=== PATIENT | female | born 1990 | race Caucasian/White ===

== ENCOUNTER 2016-12-19 20:16 | Emergency (ER) | payer MEDICAID ==
[~2016-12-19] VITALS: Ht 157.5 cm; Wt 62.5 kg
[2016-12-19 20:28] VITALS: BP 134/81; PULSE 90; RESP 18; TEMP 98.1; O2SAT 100
[2016-12-19] MEDS ORDERED: SODIUM CHLOR 0.9% 1000 ML INJ 1,000 ML IV ONE (20:59)
[2016-12-19] MEDS ORDERED: SODIUM CHLORIDE 0.9% FLUSH 10 ML FLUSH IVF PRN (21:00)
[2016-12-19] MEDS ORDERED: diphenhydrAMINE HCL 50 MG/ML VIAL IVP ONE (21:00)
[2016-12-19] MEDS ORDERED: METOCLOPRAMIDE HCL 10 MG/2 ML VIAL IVP ONE (21:00)
--- NOTE | 2016-12-19 21:18 | PD ---
HPI Chief Complaint: Headache Time Seen by Provider: 20:52 Travel History International Travel<30 days: No Contact w/Intl Traveler<30days: Yes (Cruise tour to [facility]) Traveled to known affect area: Yes (Cruise to the [facility]) History of Present Illness HPI 26-year-old female has left parietal occipital headache. It started yesterday while she was at work. She felt sudden onset of abdominal pain and then took a break. While she was resting she felt the left headache pain start. Since then it has been constant. It was sudden in onset. Tylenol has not been helpful. She notes + at home test. She's had no nausea or vomiting. She reports trace vaginal spotting yesterday. Last menstruation was just under 2 months prior. No follow-up with obstetrics. She also reports a few days of occasional cough and a sense of generalized malaise. Her daughter had similar symptoms. It started while they were on a trip in the [facility]/on a cruise. PFSH Past Medical History Anemia: Yes Diminished Hearing: No Gastrointestinal Disorders: No Headaches: Yes Immune Disorder: No Implanted Vascular Access Dvce: No Immunizations Current: No Migraines: Yes Tetanus Vaccination: Unknown Influenza Vaccination: No ?: LMP: LMP 10/22/16 : 2 Para: 1 Miscarriage: 0 : 0 Past Surgical History Section: Yes Other Surgery: No Social History Alcohol Use: No Tobacco Use: No Substance Use: No Allergies-Medications (Allergen,Severity, Reaction): Coded Allergies: Dilaudid (Verified Allergy, Severe, 12/19/16) Vancomycin (Verified Allergy, Severe, RASH, 12/19/16) Morphine (Verified Allergy, Mild, 12/19/16) PT SAID SHE FELT A HOT FLUSHED FEELING AFTER MORPHINE Reported Meds & Prescriptions Reported Meds & Active Scripts Active Plus Iron 29-1 mg ( Vit-Iron Carbonyl) 1 Tab Tab 1 Tab PO DAILY Review of Systems Except as stated in HPI: all other systems reviewed are Neg General / Constitutional: No: Fever HENT: Positive: Headaches, No: Congestion, Nosebleed, Neck Stiffness, Neck Pain, Masses Neurologic: Positive: Headache, No: Weakness, Dizziness, Change in Mentation, Slurred Speech Physical Exam Narrative GENERAL: 26 -year-old female well-nourished well-developed. SKIN: Focused skin assessment warm/dry. HEAD: Atraumatic. Normocephalic. EYES: Pupils equal and round. No scleral icterus. No injection or drainage. ENT: No nasal bleeding or discharge. Mucous membranes pink and moist. NECK: Trachea midline. No JVD. CARDIOVASCULAR: Regular rate and rhythm. No murmur appreciated. RESPIRATORY: No accessory muscle use. Clear to auscultation. Breath sounds equal bilaterally. GASTROINTESTINAL: Soft. No focus of tenderness. MUSCULOSKELETAL: No obvious deformities. No clubbing. No cyanosis. No edema. NEUROLOGICAL: Awake and alert. No obvious cranial nerve deficits. Motor grossly within normal limits. Normal speech. PSYCHIATRIC: Appropriate mood and affect; insight and judgment normal. Data Data Last Documented VS Vital Signs Date Time Temp Pulse Resp B/P Pulse Ox O2 Delivery O2 Flow Rate FiO2 12/19/16 22:35 81 16 109/61 100 Room Air 12/19/16 20:28 98.1 VS reviewed Orders Complete Blood Count With Diff (12/19/16 20:59) Basic Metabolic Panel (Bmp) (12/19/16 20:59) Ecg Monitoring (12/19/16 20:59) Iv Access Insert/Monitor (12/19/16 20:59) Oximetry (12/19/16 20:59) Sodium Chloride 0.9% Flush (Ns Flush) (12/19/16 21:00) Diphenhydramine Inj (Benadryl Inj) (12/19/16 21:00) Metoclopramide Inj (Reglan Inj) (12/19/16 21:00) Sodium Chlor 0.9% 1000 Ml Inj (Ns 1000 M (12/19/16 20:59) Beta Hcg (Quant/Titer) (12/19/16 20:59) Ed Poc Ultrasound (12/19/16 22:22) Labs Laboratory Tests Test 12/19/16 21:30 White Blood Count 8.9 TH/MM3 Red Blood Count 4.87 MIL/MM3 Hemoglobin 9.8 GM/DL Hematocrit 31.7 % Mean Corpuscular Volume 65.0 FL Mean Corpuscular Hemoglobin 20.2 PG Mean Corpuscular Hemoglobin 31.0 % Concent Red Cell Distribution Width 14.4 % Platelet Count 225 TH/MM3 Mean Platelet Volume 8.5 FL Neutrophils (%) (Auto) 61.7 % Lymphocytes (%) (Auto) 28.5 % Monocytes (%) (Auto) 7.5 % Eosinophils (%) (Auto) 1.8 % Basophils (%) (Auto) 0.5 % Neutrophils # (Auto) 5.5 TH/MM3 Lymphocytes # (Auto) 2.5 TH/MM3 Monocytes # (Auto) 0.7 TH/MM3 Eosinophils # (Auto) 0.2 TH/MM3 Basophils # (Auto) 0.0 TH/MM3 CBC Comment AUTO DIFF Differential Comment AUTO DIFF CONFIRMED Platelet Estimate NORMAL Platelet Morphology Comment NORMAL Ovalocytes 1+ Sodium Level 139 MEQ/L Potassium Level 3.7 MEQ/L Chloride Level 105 MEQ/L Carbon Dioxide Level 25.9 MEQ/L Anion Gap 8 MEQ/L Blood Urea Nitrogen 12 MG/DL Creatinine 0.65 MG/DL Estimat Glomerular Filtration 112 ML/MIN Rate Random Glucose 92 MG/DL Calcium Level 9.1 MG/DL Human Chorionic Gonadotropin, 744274 MIU/ML Quant MDM Medical Decision Making Medical Screen Exam Complete: Yes Emergency Medical Condition: Yes Medical Record Reviewed: Yes Differential Diagnosis Migraine, tension headache, cerebral sinus thrombosis, ICH, threatened , IUP, meningitis Narrative Course CBC & BMP Diagram 12/19/16 21:30 Beta 121,267 Blood type: B+ TA ultrasound reveals IUP with FHR approx 150 bpm. Pelvic precautions discussed. Follow up with environmental solutions engineer in 48 hours as pt complained of spotting yesterday. At 2240 pt reports total resolution of cephalgia, reports feeling much better and she appears much more comfortable and much less anxious. The patient is resting comfortably and feels better, is alert and in no distress. The patients results and examination findings were discussed. The repeat examination is unremarkable and benign. The history, exam, diagnostic testing, and current condition do not suggest any significant pathology to warrant further testing, continued ED treatment, admission, or surgical evaluation at this point. The vital signs have been stable. The patient does not have uncontrollable pain, intractable vomiting, or other significant symptoms. The patient's condition is stable and appropriate for discharge. The patient will pursue further outpatient evaluation with a primary care physician or other designated or consulting physician as indicated in the discharge instructions. The patient expressed understanding and was agreeable with this plan. Diagnosis Primary Impression: Headache Qualified Code: R51 - Nonintractable headache, unspecified chronicity pattern , unspecified headache type Additional Impression: Qualified Code: Z33.1 - , unspecified gestational age Referrals: Amparo Jimenez MD 2 days Departure Forms: Tests/Procedures, Work Release Special Instructions: ABSOLUTELY NO HEAVY LIFTING ALLOWED Additional Instructions: You have a choice when it comes to health care, and we are glad that you chose [facility]. Hopefully, we have met your expectations on today's visit. You are welcome to return to [facility] at any time, as we are committed to meeting the health care needs of our community. PLEASE START TAKING VITAMINS SHARDA. PLEASE CALL DR JIMENEZ'S OFFICE FOR 48 REPEAT BETA. Med/Other Pt SpecificInfo: Prescription(s) given Scripts Vit-Iron Carbonyl ( Plus Iron 29-1 mg)1 Tab Tab1 Tab PO DAILY #90 TAB Ref 3 Prov:Ousmane Flower MD 12/19/16 Disposition: 01 DISCHARGE HOME Condition: Stable Ousmane Flower MD December 19, 2016 21:18
[2016-12-19 21:40] VITALS: BP 117/69; PULSE 91; RESP 18; O2SAT 100
[2016-12-19] MEDS ORDERED: PREN29TA PO (21:43)
[2016-12-19 21:44] LABS: AUTOMATED NEUTROPHIL # 5.5 TH/MM3 (1.8-7.7); BASOPHIL % 0.5 % (0.0-2.0); EOSINOPHIL # 0.2 TH/MM3 (0-0.4); EOSINOPHIL % 1.8 % (0.0-4.0); HEMATOCRIT 31.7 % (35.0-46.0); LYMPH % 28.5 % (9.0-44.0); LYMPHOCYTE # 2.5 TH/MM3 (1.0-4.8); MEAN CORPUSCULAR HEMOGLOBIN 20.2 PG (27.0-34.0); MONO % 7.5 % (0.0-8.0); NEUT % 61.7 % (16.0-70.0); PLATELET COUNT 225 TH/MM3 (150-450); RED BLOOD COUNT 4.87 MIL/MM3 (4.00-5.30); RED CELL DISTRIBUTION WIDTH 14.4 % (11.6-17.2); WHITE BLOOD COUNT 8.9 TH/MM3 (4.0-11.0)
[2016-12-19 21:48] LABS: HEMO FLAGS AUTO DIFF
[2016-12-19 21:53] LABS: POTASSIUM 3.7 MEQ/L (3.5-5.1)
[2016-12-19 21:57] LABS: BICARBONATE 25.9 MEQ/L (21.0-32.0)
[2016-12-19 22:01] LABS: OVALOCYTES 1+ (NORMAL); PLATELET ESTIMATE SMEAR NORMAL (NORMAL); PLATELET MORPHOLOGY NORMAL (NORMAL); SCAN/DIFF AUTO DIFF CONFIRMED
[2016-12-19 22:35] VITALS: BP 109/61; PULSE 81; RESP 16; O2SAT 100
[2016-12-19 23:05] VITALS: BP 109/63; PULSE 87; RESP 16; O2SAT 100
[2017-02-01] MEDS ORDERED: PRENMIS9 PO (11:23)
== END 2016-12-19 23:20 | disposition home or self-care (01) ==
LOC: PHED 20:16
DX: R51 Headache (principal); R10.9 Unspecified abdominal pain; Z33.1 Pregnant state, incidental
CPT/HCPCS: 80048; 84702; 85025; 96361; 96374; 96375; 99284; J1200; J2765; J7030

== ENCOUNTER 2017-05-27 15:24 | Emergency (ER) | payer MEDICAID ==
[~2017-05-27] VITALS: Ht 157.5 cm; Wt 68.9 kg
[~2017-05-27 15:24] MED LIST: FERRTAB2 PO; PREN29TA PO; PRENMIS9 PO
--- NOTE | 2017-05-27 16:08 | PD ---
HPI Chief Complaint Lower abdominal pain Date Seen: May 27, 2017 Time Seen: 16:01 Travel History International Travel<30 Days: No Contact w/Intl Traveler<30Days: No Known Affected Area: No History of Present Illness HPI 27-year-old who is at 30 weeks gestation complains of lower abdominal pain which is constant since last night at 8 PM. It is worse when she stands up and worse when she is on her feet vernix long periods time. Patient denies contractions or vaginal bleeding. She has normal movement so far and no rupture membranes or vaginal discharge. Patient denies dysuria or frequency. Weeks Gestation: 30 Para: 1 : 2 History Past Medical History Medical History: Denies Significant Hx Obstetric History Obstetric History section for nonreassuring heart rate tracing patient plans to this Past Surgical History Narrative Surgical section Family History Family History: Negative Social History Alcohol Use: No Tobacco Use: No Substance Abuse: No Allergies-Medications (Allergen,Severity, Reaction): Coded Allergies: hydromorphone (Unverified Allergy, Severe, 05/16/17) vancomycin (Unverified Allergy, Severe, RASH, 05/16/17) morphine (Unverified Allergy, Mild, 05/16/17) PT SAID SHE FELT A HOT FLUSHED FEELING AFTER MORPHINE Review of Systems Except as stated in HPI: all other systems reviewed are Neg Physical Exam Narrative GENERAL: Well-nourished, well-developed patient. SKIN: Warm and dry. HEAD: Normocephalic and atraumatic. EYES: No scleral icterus. No injection or drainage. ENT: No nasal drainage noted. Mucous membranes pink. Airway patent. NECK: Supple, trachea midline. No JVD. CARDIOVASCULAR: Regular rate and rhythm without murmurs, gallops, or rubs. RESPIRATORY: Breath sounds equal bilaterally. No accessory muscle use. BREASTS: Bilateral exam showed no masses , no retractions, no nipple discharge. ABDOMEN/GI: Abdomen soft, non-tender, bowel sounds present, no rebound, no guarding Gravid to [30-] weeks size Fundal Height: [-] GENITOURINARY: External Genitalia: intact and normal in appearance BUS glands: [Normal-] Cervix: [-Posterior] Dilatation: [-Closed] Effacement: [Long-] Station: [High-] Presentation: [-Vertex] Membranes: [intact ] Uterine Contractions: [-Absent] FHT's: Category: [1-] Baseline: [-140] Reactive: [-Moderate] Variability: [Moderate-] Decels: [Absent-] EXTREMITIES: No cyanosis or edema. BACK: Nontender without obvious deformity. No CVA tenderness. NEUROLOGICAL: Awake and alert. Motor and sensory grossly within normal limits. Five out of 5 muscle strength in all muscle groups. Normal speech. Data Data Vital Signs Reviewed: Yes Orders Orders Urinalysis - C+S If Indicated (05/27/17 15:58) [facility] Medical Record Reviewed: Yes Plan 27-year-old at 30 weeks gestation, no signs of labor, no contractions, urine dip is normal Suspect discomforts of and perhaps round ligament pain Recommend decrease workload and decreased activity for the next 24-48 hours Diagnosis Diagnosis: Primary Impression: 30 weeks gestation of Additional Impression: related bilateral lower abdominal pain, antepartum Disposition: 01 DISCHARGE HOME Pamela Rivers MD May 27, 2017 16:08
[2017-05-27 16:22] LABS: AMORPHOUS SEDIMENT, URINE RARE; BACTERIA, URINE RARE /hpf; BILIRUBIN, URINE NEG (NEG); BLOOD, URINE NEG (NEG); GLUCOSE,URINE NEG (NEG); KETONE, URINE NEG (NEG); MUCUS URINE FEW /lpf (OCC); NITRITE,URINE NEG (NEG); PH, URINE 6.5 (5.0-8.5); SQUAMOUS EPITHELIAL CELL URINE 4 /hpf (0-5); URINE COLOR YELLOW (YELLW/STRAW); URINE LEUKOCYTE ESTERASE SMALL (NEG); WHITE BLOOD CELL CLUMPS MOD
[2017-05-30] MEDS ORDERED: PREN1CAP20 PO (09:31)
== END 2017-05-27 16:28 | disposition home or self-care (01) ==
LOC: HOBED 15:24
DX: O26.893 Other specified pregnancy related conditions, third trimester (principal); R10.31 Right lower quadrant pain; R10.32 Left lower quadrant pain; Z3A.30 30 weeks gestation of pregnancy
CPT/HCPCS: 81001; 87086; 99283

== ENCOUNTER 2017-07-23 09:47 | Emergency (ER) | payer MEDICAID ==
[~2017-07-23 09:47] MED LIST changes: -FERRTAB2 PO; +PREN1CAP20 PO; -PREN29TA PO; -PRENMIS9 PO
[2017-07-23] MEDS ORDERED: SODIUM CHLORIDE 0.9% FLUSH 10 ML FLUSH IV FLUSH PRN (10:30)
[2017-07-23] MEDS ORDERED: DEXTROSE 5%-LACTATED RING INJ 1,000 ML IV SCH (10:30)
[2017-07-23 10:38] VITALS: BP 127/74; PULSE 101
--- NOTE | 2017-07-23 10:38 | PD ---
HPI Chief Complaint dizziness, headaches, blurry vision Date Seen: Jul 23, 2017 Time Seen: 10:28 Travel History International Travel<30 Days: No Contact w/Intl Traveler<30Days: No History of Present Illness HPI Patient is a 27 year old at 38 weeks gestation, EDC 08/05/2017. Scheduled CS scheduled for 07/30/2017. She presents to the OB ED with dizziness, blurry vision, headache, "not self." She has history of migraine and anemia, took 325mg Tylenol this morning with no improvement of her symptoms. OB care with Jade [facility]. She denies leakage of fluid, vaginal bleeding, and contractions. She feels baby moving regularly. She denies fever/sick contacts/SOB/calf pain/ seeing spots. PMH: none reported PSH: none reported Allergies: morphine, dilaudid, vancomycin (breathing issues, swelling) Social: denies tobacco, alcohol, illicit drug use OBHx: , CS 3.5 yrs ago for distress, first baby 6lb. Scheduled for repeat CS 07/30/2017. No complications this reported. History Social History Alcohol Use: No Tobacco Use: No Substance Abuse: No Allergies-Medications (Allergen,Severity, Reaction): Coded Allergies: hydromorphone (Unverified Allergy, Severe, 07/22/17) vancomycin (Unverified Allergy, Severe, RASH, 07/22/17) morphine (Unverified Allergy, Mild, 07/22/17) PT SAID SHE FELT A HOT FLUSHED FEELING AFTER MORPHINE Home Meds Active Scripts W/O Vit A W/ Fe Carbo (Prenate Mini 18-0.6-0.4-350 mg) 18 Mg Iron-1 Mg- 350 Mg Cap, 1 TAB PO DAILY, #30 BOTTLE 11 Refills Prov:Rachael Gallegos 05/30/17 Review of Systems Except as stated in HPI: all other systems reviewed are Neg Physical Exam Narrative GENERAL: Well-nourished, well-developed patient. SKIN: Warm and dry. HEAD: Normocephalic and atraumatic. EYES: No scleral icterus. No injection or drainage. ENT: No nasal drainage noted. Mucous membranes pink. Airway patent. NECK: Supple, trachea midline. No JVD. CARDIOVASCULAR: Regular rate and rhythm without murmurs, gallops, or rubs. RESPIRATORY: Breath sounds equal bilaterally. No accessory muscle use. ABDOMEN/GI: Abdomen soft, non-tender, bowel sounds present, no rebound, no guarding. Gravid to full term size GENITOURINARY: External Genitalia: deferred Uterine Contractions: absent on toco FHT's: Category: 1 Baseline: 140s Reactive: y Variability: mod Decels: absent EXTREMITIES: No cyanosis or edema. BACK: Nontender without obvious deformity. No CVA tenderness. NEUROLOGICAL: Awake and alert. Motor and sensory grossly within normal limits. Five out of 5 muscle strength in all muscle groups. Normal speech. Data Data Vital Signs Reviewed: Yes (wnl) Orders Orders Vital Signs (Adult) .ON ADMISSION (07/23/17 10:25) ^ Labor Status (07/23/17 10:25) ^ Non Stress Test (07/23/17 10:25) Sodium Chloride 0.9% Flush (Ns Flush) (07/23/17 10:30) Dextrose 5%-Lactated Ring Inj (D5-Lr Inj (07/23/17 10:30) Cbc No Diff, Includes Plts (07/23/17 10:25) Comprehensive Metabolic Panel (07/23/17 10:25) Urinalysis - C+S If Indicated (07/23/17 10:25) MDM Medical Record Reviewed: Yes Plan 27 year old at 38 weeks gestation, EDC 08/05/2017. Scheduled CS scheduled for 07/30/2017. She presents to the OB ED with dizziness, blurry vision, headache, "not self." She has history of migraine and anemia, on iron. Intrauterine : Category 1 tracing CS scheduled for 07/30/2017 Monitor heart tones Routine care GBS negative Headache, Blurry Vision BPs within normal limits Likely related to dehydration but does have hx migraiens Will get CBC, CMP, UA Hydration with 1L d5NS Tylenol 650mg x 1 If symptoms improve and labs wnl, will discharge home with labor and PreE precautions, recommendations for acetaminophen PRN, routine followup DW Dr. Jade Harris Diagnosis Diagnosis: Primary Impression: Headache Additional Impressions: with 38 completed weeks gestation Dehydration Disposition: 01 DISCHARGE HOME Condition: Stable Patient Instructions: Early Labor Signs (ED), Having Your Baby: The Labor Process (GEN) Gisela Hammer MD R2 Jul 23, 2017 10:38
[2017-07-23 10:45] VITALS: BP 122/71; PULSE 102
[2017-07-23 11:19] LABS: BACTERIA, URINE RARE /hpf; BILIRUBIN, URINE NEG (NEG); BLOOD, URINE NEG (NEG); GLUCOSE,URINE NEG (NEG); KETONE, URINE NEG (NEG); MUCUS URINE FEW /lpf (OCC); NITRITE,URINE NEG (NEG); SQUAMOUS EPITHELIAL CELL URINE 3 /hpf (0-5); URINE COLOR YELLOW (YELLW/STRAW); URINE LEUKOCYTE ESTERASE TRACE (NEG)
[2017-07-23 11:37] LABS: HEMATOCRIT 29.1 % (35.0-46.0); HEMOGLOBIN 9.2 GM/DL (11.6-15.3); MEAN CORPUSCULAR HEMOGLOBIN 21.2 PG (27.0-34.0); MEAN CORPUSCULAR HGB CONC 31.6 % (32.0-36.0); MEAN PLATELET VOLUME 9.8 FL (7.0-11.0); PLATELET COUNT 184 TH/MM3 (150-450); RED BLOOD COUNT 4.34 MIL/MM3 (4.00-5.30); RED CELL DISTRIBUTION WIDTH 15.5 % (11.6-17.2); WHITE BLOOD COUNT 11.4 TH/MM3 (4.0-11.0)
[2017-07-23] MEDS ORDERED: ACETAMINOPHEN 325 MG TAB PO ONE (11:45)
[2017-07-23 12:01] LABS: ALBUMIN 2.8 GM/DL (3.4-5.0); ALT (GPT) 17 U/L (10-53); AST (GOT) 23 U/L (15-37); BLOOD UREA NITROGEN 6 MG/DL (7-18); CALCIUM 8.6 MG/DL (8.5-10.1); CHLORIDE 106 MEQ/L (98-107); CREATININE 0.43 MG/DL (0.50-1.00); GLOMERULAR FILTRATION RATE 179 ML/MIN (>89); GLUCOSE,RANDOM 66 MG/DL (74-106); SODIUM (NA) 137 MEQ/L (136-145)
[2017-07-23 12:02] LABS: ALKALINE PHOSPHATASE 112 U/L (45-117); TOTAL BILIRUBIN ADULT 0.4 MG/DL (0.2-1.0); TOTAL PROTEIN 6.5 GM/DL (6.4-8.2)
--- NOTE | 2017-07-23 13:28 | PD ---
History of Present Illness History of Present Illness NST report Indications: IUP at 38 weeks, dizziness and weakness, visual changes and headache, and dehydration heart tone baselines in the 140s with moderate long-term variability, good accelerations, no decelerations are noted. This is a reassuring category 1 heart rate tracing and reactive NST. Final diagnosis:IUP at 38 weeks, dizziness and weakness, visual changes and headache, and dehydration. Reassuring testing with reactive NST. Follow-up: Follow-up as clinically indicated Rachael Harris MD Jul 23, 2017 13:28
== END 2017-07-23 12:26 | disposition home or self-care (01) ==
LOC: HOBED 09:47
DX: O99.283 Endocrine, nutritional and metabolic diseases complicating pregnancy, third trimester (principal); E86.0 Dehydration; Z3A.38 38 weeks gestation of pregnancy
CPT/HCPCS: 80053; 81001; 85027; 99284; J7121

== ENCOUNTER 2017-07-30 09:43 | Inpatient (IN) | payer MEDICAID ==
[2017-07-30] VITALS (14 sets, daily range): BP systolic 111–139; BP diastolic 53–85; PULSE 81–113; RESP 15–20; TEMP 97.6–98; O2SAT 99–100
--- NOTE | 2017-07-30 10:22 | HHI.HP ---
History & Physical H&P [employer] WORKER Consult (Detail) Patient Name: Jordy Rolle Unit Number: [id number] Date of : 1990 Patient Status: Registered Clinic Attending Doctor: Mike Felipe MD HPI HPI Chief Complaint for Date Seen: Jul 30, 2017 Time Seen: 1000 Travel History International Travel<30 Days: No Contact w/Intl Traveler<30Days: No Known Affected Area: No History of Present Illness HPI 27-year-old 2 para 1 at 3 9 weeks gestation with an EDC of August 05. She had a prior after failing to progress at 9 cm with a 6 pound infant. We reviewed today the possibility of trial of labor versus elective repeat and she is confident that she wants to proceed with repeat C- section after reviewing the benefits and risks. She will be 39 weeks on 28 July patent wishes to schedule her surgery on the . History (Limited) History Past Medical History Medical History: Denies Significant Hx Obstetric History Obstetric History Prior for failure to progress at 9 cm [facility] complicated by anemia for which she is taking iron. Her last hematocrit was 29%. Past Surgical History Narrative Surgical Family History Family History: Negative Social History Alcohol Use: No Tobacco Use: No Substance Abuse: No Allergies-Medications Allergies-Medications (Allergen,Severity, Reaction): Coded Allergies: hydromorphone (Unverified Allergy, Severe, 07/10/17) vancomycin (Unverified Allergy, Severe, RASH, 07/10/17) morphine (Unverified Allergy, Mild, 07/10/17) PT SAID SHE FELT A HOT FLUSHED FEELING AFTER MORPHINE Home Meds Active Scripts W/O Vit A W/ Fe Carbo (Prenate Mini 18-0.6-0.4-350 mg) 18 Mg Iron-1 Mg- 350 Mg Cap, 1 TAB PO DAILY, #30 BOTTLE 11 Refills Prov:Rachael Gallegos 05/30/17 ROS Review of Systems Except as stated in HPI: all other systems reviewed are Neg Physical Exam Physical Exam Narrative GENERAL: Well-nourished, well-developed patient. SKIN: Warm and dry. HEAD: Normocephalic and atraumatic. EYES: No scleral icterus. No injection or drainage. ENT: No nasal drainage noted. Mucous membranes pink. Airway patent. NECK: Supple, trachea midline. No JVD. CARDIOVASCULAR: Regular rate and rhythm without murmurs, gallops, or rubs. RESPIRATORY: Breath sounds equal bilaterally. No accessory muscle use. BREASTS: Bilateral exam showed no masses , no retractions, no nipple discharge. ABDOMEN/GI: Abdomen soft, non-tender, bowel sounds present, no rebound, no guarding Gravid to [-] weeks size Fundal Height: [-] GENITOURINARY: External Genitalia: intact and normal in appearance BUS glands: [-] Cervix: [post-] Dilatation: [0-] Effacement: [0-] Station: [-3] Presentation: [-vtx] Membranes: [intact ] Uterine Contractions: [-none] FHT's: Category: [-1] Baseline: [133-] Reactive: [yes-] Variability: [mod-] Decels: [none-] EXTREMITIES: No cyanosis or edema. BACK: Nontender without obvious deformity. No CVA tenderness. NEUROLOGICAL: Awake and alert. Motor and sensory grossly within normal limits. Five out of 5 muscle strength in all muscle groups. Normal speech. Data Data Data Labs B+, AST negative, hemoglobin 9.6, rubella immune, VDRL negative, hepatitis B negative, HIV negative, GC and Chlamydia negative, parasellar immune, 1 hour G gtt. 130, HIV negative and hepatitis B negative at 32 weeks MDM MDM Medical Record Reviewed: Yes Narrative Course / MDM Assessment: 39 week intrauterine with prior desiring elective repeat Plan: Repeat at noon on July 30. The patient was encouraged to increase her iron to twice daily. Disposition: ADMIT for C/S Condition: Good Mike Felipe MD Jul 30, 2017 1000 Mike Felipe II, MD Jul 30, 2017 10:22
[2017-07-30] MEDS ORDERED: LACTATED RINGER'S 1000 ML INJ 1,000 ML IV ONE (10:30)
[2017-07-30 10:35] LABS: AUTOMATED NEUTROPHIL # 6.5 TH/MM3 (1.8-7.7); BASOPHIL # 0.1 TH/MM3 (0-0.2); BASOPHIL % 0.6 % (0.0-2.0); EOSINOPHIL # 0.2 TH/MM3 (0-0.4); EOSINOPHIL % 2.3 % (0.0-4.0); HEMATOCRIT 30.6 % (35.0-46.0); HEMOGLOBIN 9.8 GM/DL (11.6-15.3); LYMPH % 19.3 % (9.0-44.0); LYMPHOCYTE # 1.8 TH/MM3 (1.0-4.8); MEAN CELL VOLUME 67.7 FL (80.0-100.0); MEAN CORPUSCULAR HEMOGLOBIN 21.7 PG (27.0-34.0); MEAN CORPUSCULAR HGB CONC 32.1 % (32.0-36.0); MEAN PLATELET VOLUME 10.1 FL (7.0-11.0); MONO % 8.8 % (0.0-8.0); MONOCYTE # 0.8 TH/MM3 (0-0.9); PLATELET COUNT 197 TH/MM3 (150-450); RED BLOOD COUNT 4.52 MIL/MM3 (4.00-5.30); WHITE BLOOD COUNT 9.4 TH/MM3 (4.0-11.0)
[2017-07-30 10:42] LABS: BACTERIA, URINE RARE /hpf; BILIRUBIN, URINE NEG (NEG); BLOOD, URINE NEG (NEG); GLUCOSE,URINE NEG (NEG); KETONE, URINE NEG (NEG); MUCUS URINE FEW /lpf (OCC); NITRITE,URINE NEG (NEG); SQUAMOUS EPITHELIAL CELL URINE 6 /hpf (0-5); URINE COLOR YELLOW (YELLW/STRAW); URINE LEUKOCYTE ESTERASE TRACE (NEG)
[2017-07-30] MEDS ORDERED: LACTATED RINGER'S 1000 ML INJ 1,000 ML IV SCH (11:00)
[2017-07-30] MEDS ORDERED: ceFAZolin 2 GM PREMIX 50 ML IV SCH (11:30)
[2017-07-30] MEDS ORDERED: MIDAZOLAM HCL 2 MG/2 ML VIAL ONE (11:54)
[2017-07-30] MEDS ORDERED: CITRIC ACID-SODIUM CITRATE LIQ 30 ML UDC PO SCH (12:00)
[2017-07-30] MEDS ORDERED: KETOROLAC TROMETHAMINE 60 MG/2 ML (IM) VIAL IM PRN ×2 (13:30)
[2017-07-30] MEDS ORDERED: ACETAMINOPHEN 325 MG TAB PO PRN (13:30)
[2017-07-30] MEDS ORDERED: IBUPROFEN 600 MG TAB PO PRN (13:30)
[2017-07-30] MEDS ORDERED: SIMETHICONE 80 MG CHEWABLE TAB PO PRN (13:30)
[2017-07-30] MEDS ORDERED: OXYTOCIN 30 UNITS-500ML PREMIX 500 ML IV ONE (13:30)
[2017-07-30] MEDS ORDERED: ZOLPIDEM TARTRATE 5 MG TAB PO PRN (13:30)
[2017-07-30] MEDS ORDERED: SODIUM CHLORIDE 0.9% FLUSH 10 ML FLUSH IV FLUSH PRN (13:30)
[2017-07-30] MEDS ORDERED: ONDANSETRON HCL 4 MG/2 ML VIAL IV PUSH PRN (13:30)
[2017-07-30] MEDS ORDERED: KETOROLAC TROMETHAMINE 60 MG/2 ML (IM) VIAL IM ONE (13:58)
[2017-07-30] MEDS ORDERED: OXYTOCIN 30 UNITS-500ML PREMIX 500 ML ONE (13:58)
[2017-07-30] MEDS ORDERED: EPIDURAL-DO NOT ADMINISTER ANTICOAGULANTS PRN (14:45)
[2017-07-30] MEDS ORDERED: EPIDURAL-DIPHENHYDRAMINE HCL 50 MG/ML VIAL IV PUSH PRN (14:45)
[2017-07-30] MEDS ORDERED: EPIDURAL-NO SYSTEMIC NARCOTICS PRN (14:45)
[2017-07-30] MEDS ORDERED: EPIDURAL-NALOXONE HCL 0.4 MG/ML AMP IV PUSH PRN (14:45)
[2017-07-30] MEDS ORDERED: EPIDURAL-DIPHENHYDRAMINE HCL 50 MG CAP PO PRN (14:45)
[2017-07-30] MEDS: ACETAMINOPHEN 1000 MG/100 ML 100 ML IV SCH ×2 (16:59→21:33)
--- NOTE | 2017-07-30 17:01 | MP ---
cc: ELIZABETH HARTMAN MD DATE OF SURGERY 07/30/2017 PREOPERATIVE DIAGNOSES Previous . At term for repeat . POSTOPERATIVE DIAGNOSES Previous . At term for repeat . 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 PROCEDURE PERFORMED Repeat low transverse section and drainage of mucinous cystadenoma the left fallopian tube. SURGEON MD Matteo MICA MINER BLASTING [facility] ANESTHESIA Spinal. PREOPERATIVE NOTE The patient is a 27-year-old white female, , previous who elects to have a repeat at 39 weeks. She was admitted for same. PROCEDURE The patient was taken to the operating room and placed supine on the operating table. Adequate spinal anesthesia was administered and she was prepped and draped for abdominal surgery. The previous Pfannenstiel incision was excised out and cast off. The incision was carried to the fascia and the fascia incised laterally and off the rectus muscle. The rectus was split in the midline and the peritoneal cavity entered sharply. The incision was extended superiorly and inferiorly. The incision was stretched open and the bladder blade placed in the lower end of the incision. The visceral peritoneum was reflected off the lower uterine segment and a transverse hysterotomy was made, extended bilaterally and a female infant was delivered at 12:29 p.m., weight 2770 grams, Apgars 9 and 9 and there was no complications to that delivery. Cord blood obtained. Delayed cord clamping noted and the baby handed to the awaiting nursery staff. There was a loose nuchal cord x2 which was reduced, a very small cord. The placenta was manually extracted and cast off. The uterus was exteriorized, hysterotomy closed in running layer of 0 chromic followed by imbricating suture of the same. Hemostasis was achieved with a couple of stick ties. The uterus was elevated and blood suctioned from cul-de-sacs and gutters. At that time we examining the adnexa. The right adnexa had normal tube and ovary. The left adnexa showed a 4 to 5 cm cystic structure at the end of the fallopian tube. This seemed to be coming from the mesosalpinx and fallopian tube, not the ovary itself. It was smooth and fluid-filled. A Bovie was used to cauterize into the cystic structure and a brownish mucin was expressed out of this cyst and was completely evacuated out. There was no hair or sign of a dermoid; it seemed more of a mucinous cystadenoma. This was all that was done to that side; however, we did not try to remove that cystic structure because I felt it would compromise the tube greatly to try and remove that cystic structure so it was left in situ. The uterus was replaced in the peritoneal cavity. The parietal peritoneum was closed in a running layer of 2-0 Vicryl and the muscle reapproximated with stick ties of chromic. The fascia was closed in running layer of 0 Vicryl. The subcutaneous tissues was reapproximated with a running layer of 2-0 plain suture and then the skin closed with subcuticular 3-0 Monocryl stitch. Pressure dressing was applied. The estimated blood loss was 500 cc. There were no complications. Sponge and needle count correct x2 and the patient went to Recovery in stable condition. MD SANGEETHA Messina/ALISON /1:55 PM /4:36 PM
[2017-07-30] MEDS ORDERED: oxyCODONE/ACETAMINOPHEN 5 MG/325 MG TAB PO PRN (18:00)
[2017-07-30] MEDS: oxyCODONE/ACETAMINOPHEN 5 MG/325 MG TAB PO PRN (20:04)
[2017-07-30] MEDS: LACTATED RINGER'S 1000 ML INJ 1,000 ML IV SCH (20:17)
[2017-07-30] MEDS: SODIUM CHLORIDE 0.9% FLUSH 10 ML FLUSH IV FLUSH SCH (20:17)
[2017-07-30] MEDS ORDERED: OXYTOCIN 30 UNITS-500ML PREMIX 500 ML IV PRN (23:30)
[2017-07-31] VITALS: BP 113/72; PULSE 97; RESP 18; TEMP 97.5; O2SAT 100
[2017-07-31] MEDS: IBUPROFEN 800 MG TAB PO PRN ×3 (00:07→18:06)
[2017-07-31] MEDS: oxyCODONE/ACETAMINOPHEN 5 MG/325 MG TAB PO PRN ×5 (00:07→18:06)
[2017-07-31 04:00] VITALS: BP 106/78; PULSE 91; RESP 18; TEMP 98; O2SAT 97
[2017-07-31] MEDS: ACETAMINOPHEN 1000 MG/100 ML 100 ML IV SCH (04:00)
[2017-07-31] MEDS: DOCUSATE SODIUM 50 MG/SENNA 8.6 MG TAB PO PRN (04:06)
[2017-07-31] MEDS: LACTATED RINGER'S 1000 ML INJ 1,000 ML IV SCH (04:21)
[2017-07-31 05:55] LABS: AUTOMATED NEUTROPHIL # 7.1 TH/MM3 (1.8-7.7); BASOPHIL # 0.1 TH/MM3 (0-0.2); BASOPHIL % 0.5 % (0.0-2.0); EOSINOPHIL # 0.2 TH/MM3 (0-0.4); EOSINOPHIL % 2.6 % (0.0-4.0); HEMATOCRIT 27.2 % (35.0-46.0); HEMOGLOBIN 8.9 GM/DL (11.6-15.3); LYMPH % 12.2 % (9.0-44.0); LYMPHOCYTE # 1.2 TH/MM3 (1.0-4.8); MEAN CORPUSCULAR HEMOGLOBIN 22.1 PG (27.0-34.0); MEAN CORPUSCULAR HGB CONC 32.5 % (32.0-36.0); MEAN PLATELET VOLUME 9.9 FL (7.0-11.0); MONO % 10.3 % (0.0-8.0); NEUT % 74.4 % (16.0-70.0); PLATELET COUNT 162 TH/MM3 (150-450); RED CELL DISTRIBUTION WIDTH 15.8 % (11.6-17.2); WHITE BLOOD COUNT 9.5 TH/MM3 (4.0-11.0)
--- NOTE | 2017-07-31 07:11 | HHI.OB ---
Subjective Remarks POD #1 s/p repeat . No acute issues overnight. Vitals are stable, patient remains afebrile. Her pain is currently a 7/10 and she does not feel that her current pain medications are strong enough. She has been up walking around and going to the bathroom without difficulty. 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 Her incision is draining a small amount of blood. She is bonding well with . Objective Vitals/I&O Vital Signs Date Time Temp Pulse Resp B/P (MAP) Pulse Ox O2 Delivery O2 Flow Rate FiO2 07/31/17 04:00 98.0 91 18 106/78 (87) 97 07/31/17 00:00 97.5 97 18 113/72 (86) 100 07/30/17 20:00 97.9 91 20 116/69 (85) 99 07/30/17 17:16 17 07/30/17 17:00 17 07/30/17 15:10 18 07/30/17 14:52 97.9 91 16 125/68 (87) 07/30/17 14:14 18 100 07/30/17 14:14 97.9 07/30/17 14:14 81 118/58 (78) 07/30/17 14:10 16 07/30/17 14:08 100 07/30/17 14:08 85 116/53 (74) 07/30/17 13:45 85 15 124/55 (78) 100 07/30/17 13:35 92 20 116/61 (79) 100 07/30/17 13:25 97.6 07/30/17 13:25 89 15 100 07/30/17 13:25 111/61 (78) 07/30/17 11:28 18 07/30/17 10:21 98.0 07/30/17 09:56 113 139/85 (103) Result Diagram: 07/31/17 0512 Objective Remarks GENERAL: Well-nourished, well-developed patient. CARDIOVASCULAR: Regular rate and rhythm without murmurs, gallops, or rubs. RESPIRATORY: Breath sounds equal bilaterally. No accessory muscle use. ABDOMEN/GI: Abdomen soft, non-tender, bowel sounds present. Incision: Clean, dry and intact. Fundus: Firm, non-tender at umbilicus. GENITOURINARY: Light to moderate bleeding. EXTREMITIES: No cyanosis or edema, non-tender, without signs of DVT. Medications and IVs Current Medications Medications (Trade) Dose Ordered Sig/Maria Dolores Route Start Time Stop Time Status Last Admin Lactated Ringer's 1,000 ml @ 100 mls/hr Q10H IV 07/30/17 18:21 07/31/17 14:20 07/30/17 20:17 Oxytocin 500 ml @ 100 mls/hr UNSCH X1 PRN IV 07/30/17 23:30 07/31/17 23:29 (NS Flush) 2 ml BID IV FLUSH 07/30/17 21:00 (NS Flush) 2 ml UNSCH PRN IV FLUSH 07/30/17 13:30 (Mylicon Chew) 80 mg QID PRN PO 07/30/17 13:30 (Tylenol) 650 mg Q6H PRN PO 07/30/17 13:30 (Toradol Inj) 60 mg UNSCH X1 PRN IM 07/30/17 13:30 07/31/17 13:29 07/30/17 14:02 (Toradol Inj) 30 mg Q6H PRN IM 07/30/17 13:30 07/31/17 13:29 (Toma-Colace) 2 tab Q12H PRN PO 07/30/17 13:30 07/31/17 04:06 (Ambien) 5 mg HS PRN PO 07/30/17 13:30 (M-M-R Ii Inj) 0.5 ml ONCE ONCE SQ 07/31/17 16:00 07/31/17 16:01 (Boostrix Inj) 0.5 ml ONCE ONCE IM 07/31/17 16:00 07/31/17 16:01 (Zofran Inj) 4 mg Q6H PRN IV PUSH 07/30/17 13:30 Miscellaneous Information NO SYSTEMIC NARCOTICS TO BE GIVEN FO... UNSCH PRN .XX 07/30/17 14:45 07/31/17 14:44 (Narcan Inj) 0.4 mg UNSCH PRN IV PUSH 07/30/17 14:45 07/31/17 14:44 (Benadryl Inj) 25 mg Q6H PRN IV PUSH 07/30/17 14:45 07/31/17 14:44 (Benadryl) 50 mg Q6H PRN PO 07/30/17 14:45 07/31/17 14:44 Miscellaneous Information ALL NURSING DEPARTMENTS UNSCH PRN .XX 07/30/17 14:45 07/31/17 14:44 Acetaminophen 100 ml @ 400 mls/hr Q6H IV 07/30/17 16:00 07/30/17 16:59 (Percocet 5-325 Mg) 1 tab Q4H PRN PO 07/30/17 18:00 (Percocet 5-325 Mg) 2 tab Q4H PRN PO 07/30/17 18:00 07/31/17 04:06 (Motrin) 800 mg QID PRN PO 07/30/17 23:45 07/31/17 00:07 Assessment/Plan Problem List: (1) delivery delivered ICD Codes: O82 - Encounter for delivery without indication Status: Acute Assessment and Plan 27 y/o female who is POD # 1 s/p . -Continue routine care. -Hgb stable at 8.9, down from 9.8 -Percocet and Motrin PRN pain. -Encouraged OOB. Advised pelvic rest for 6 wks. Will need a f/u appt. in 1 wk for incision check. -Re: ctrl, she would like to consider her options - Discharge home in 1-2 days. annika Scruggs,Maureen Herr MD, R3 Jul 31, 2017 07:11
[2017-07-31 08:11] VITALS: BP 107/69; PULSE 86; RESP 18; TEMP 97.9
[2017-07-31] MEDS ORDERED: ACETAMINOPHEN 1000 MG/100 ML 100 ML IV PRN (16:00)
[2017-07-31] MEDS ORDERED: MEASLES, MUMPS, RUBELLA VACCINE 0.5 ML VIAL SQ ONE (16:00)
[2017-07-31] MEDS ORDERED: DIPHTH/TETANUS/ACEL PERTUSSIS (BOOSTER) 0.5 ML VIAL/PFS IM ONE (16:00)
[2017-07-31] MEDS: SODIUM CHLORIDE 0.9% FLUSH 10 ML FLUSH IV FLUSH SCH (21:00)
[2017-08-01] MEDS: IBUPROFEN 800 MG TAB PO PRN ×2 (00:03→06:17)
[2017-08-01] MEDS: oxyCODONE/ACETAMINOPHEN 5 MG/325 MG TAB PO PRN ×2 (00:04→06:16)
[2017-08-01] MEDS: DOCUSATE SODIUM 50 MG/SENNA 8.6 MG TAB PO PRN (00:04)
[2017-08-01 08:00] VITALS: BP 114/69; PULSE 94; RESP 18; TEMP 97.6; O2SAT 98
--- NOTE | 2017-08-01 08:21 | HHI.OB ---
Subjective Post Day: 2 Remarks Postoperative day number 2. AFVSS overnight. Pain controlled. Incision not draining. Decreased lochia. Denies dysuria. She is feeding the baby via breast and bottle. Appetite good. No nausea or vomiting. + flatus. Ambulating well. Denies calf pain, shortness of breath, or cough. Otherwise, she is doing well this morning and has no other complaints. Objective Objective Remarks GENERAL: Well-nourished, well-developed patient. CARDIOVASCULAR: Regular rate and rhythm without murmurs, gallops, or rubs. RESPIRATORY: Breath sounds equal bilaterally. No accessory muscle use. ABDOMEN/GI: Abdomen soft, non-tender. Fundus: Firm, non-tender at umbilicus. Incision site clean/dry/intact GENITOURINARY: Light to moderate bleeding. EXTREMITIES: No cyanosis or edema, non-tender, without signs of DVT. Medications and IVs Current Medications Medications (Trade) Dose Ordered Sig/Maria Dolores Route Start Time Stop Time Status Last Admin (NS Flush) 2 ml BID IV FLUSH 07/30/17 21:00 (NS Flush) 2 ml UNSCH PRN IV FLUSH 07/30/17 13:30 (Mylicon Chew) 80 mg QID PRN PO 07/30/17 13:30 (Tylenol) 650 mg Q6H PRN PO 07/30/17 13:30 (Toma-Colace) 2 tab Q12H PRN PO 07/30/17 13:30 08/01/17 00:04 (Ambien) 5 mg HS PRN PO 07/30/17 13:30 (Zofran Inj) 4 mg Q6H PRN IV PUSH 07/30/17 13:30 (Percocet 5-325 Mg) 1 tab Q4H PRN PO 07/30/17 18:00 (Percocet 5-325 Mg) 2 tab Q4H PRN PO 07/30/17 18:00 08/01/17 06:16 (Motrin) 800 mg QID PRN PO 07/30/17 23:45 08/01/17 06:17 Acetaminophen 100 ml @ 400 mls/hr Q6H PRN IV 07/31/17 16:00 Assessment/Plan Problem List: (1) delivery delivered ICD Codes: O82 - Encounter for delivery without indication Status: Acute Assessment and Plan 27 y/o female who is POD # 2 s/p . -Continue routine care. -Percocet and Motrin PRN pain. -Encouraged OOB. Advised pelvic rest for 6 wks. Will need a f/u appt. in 1 wk for incision check. - Discharge home tomorrow dw Dr. Matteo Rhoades,Tiffany Trinh MD R1 Aug 01, 2017 08:21
[2017-08-01] MEDS: SODIUM CHLORIDE 0.9% FLUSH 10 ML FLUSH IV FLUSH SCH (09:00)
--- NOTE | 2017-08-01 11:02 | HHI.DCPOC ---
Discharge Care Plan Diagnosis: (1) delivery delivered Report Symptoms to Your Doctor -Temperature above 100.5 degrees -Redness, of incision or excessive or foul smelling drainage -Unusual pain or calf pain -Increased vaginal bleeding -Painful or difficulty urinating -Feelings of extreme sadness or anxiety after 2 weeks Goals to Promote Your Health * To prevent worsening of your condition and complications * To maintain your health at the optimal level PELVIC REST AND NO SEXUAL ACTIVITY FOR 6 WEEKS Directions to Meet Your Goals Take your medications as prescribed Follow your dietary instruction Follow activity as directed Ensure plenty of rest for recovery Drink fluids for hydration Keep your appointments as scheduled Take your immunizations and boosters as scheduled If your symptoms worsen call your PCP, if no PCP go to Urgent Care Center or Emergency Room Smoking is Dangerous to Your Health. Avoid second hand smoke Call the 24-hour crisis hotline for domestic abuse at Tiffany Rhoades MD R1 Aug 01, 2017 11:02
[2017-08-01] MEDS ORDERED: IBUP1TAB7 PO (11:05)
[2017-08-01] MEDS ORDERED: OXYC1TAB63 PO (11:05)
[2017-08-01] MEDS ORDERED: PERI PO (11:05)
== END 2017-08-01 12:41 | disposition home or self-care (01) | DRG 766 ==
LOC: H2EB 09:43 → H1EA 14:36
PROVIDERS: ADMIT Obstetrics & Gynecology Maternal & Fetal Medicine; ATTEND Obstetrics & Gynecology Maternal & Fetal Medicine
PROC: 10D00Z1 Extraction of Products of Conception, Low, Open Approach (ICD-10-PCS; principal; 2017-07-30)
PROC: 0U960ZZ Drainage of Left Fallopian Tube, Open Approach (ICD-10-PCS; 2017-07-30)
DX: O34.211 Maternal care for low transverse scar from previous cesarean delivery (principal); D28.2 Benign neoplasm of uterine tubes and ligaments; O69.81X0 Labor and delivery complicated by cord around neck, without compression, not applicable or unspecified; O99.02 Anemia complicating childbirth; D64.9 Anemia, unspecified; Z37.0 Single live birth; Z3A.39 39 weeks gestation of pregnancy
CPT/HCPCS: 80307; 81001; 85025; 86850; 86900; 86901; J0131; J0690; J1885; J2250; J2590; J3010; J7120